=== PATIENT | male | born 1980 ===

== ENCOUNTER 2021-05-24 05:53 | Inpatient (IN) ==
[2021-05-19 10:26] LABS: Basophils # 0.1 10*3/uL (0.0-0.2); Basophils % 0.6 % (0.0-0.8); Eosinophils # 0.4 10*3/uL (0.0-0.87); Eosinophils % 2.9 % (0.00-10.9); Immature Granulocytes % 0.8 %; Immature Granulocytes Absolute 0.09 #; Lymphocytes # 2.5 10*3/uL (1.4-4.0); Lymphocytes % 20.8 % (21.2-54.2); Mean Corpuscular HGB Conc 33.3 GM/DL (32-36); Mean Corpuscular Volume 80.9 FL (87-102); Mean Platelet Volume 9.1 FL (9.6-12.0); Monocytes % 8.1 % (1.7-12.7); Neutrophils % 66.8 % (38.7-73.9); Platelet Count 602 T/CUMM (130-400); Red Blood Count 5.19 MC/CUMM (3.8-5.5); Red Cell Distribution Width 12.3 % (9.3-17.3); White Blood Count 11.9 T/CUMM (4-12)
[2021-05-19 10:42] LABS: Calcium 9.3 MG/DL (8.5-10.1); Osmolality,Calculated 276.5 MOS/KG (273-304); Potassium 4.5 MMOL/L (3.5-5.1)
[2021-05-24] MEDS ORDERED: fentaNYL 100 MCG/2 ML VIAL ONE ×2 (06:20→08:02)
[2021-05-24] MEDS ORDERED: LIDOCAINE 2% 5 ML VIAL ONE (06:20)
[2021-05-24] MEDS ORDERED: DEXAMETHASONE 4 MG/1 ML VIAL ONE (06:20)
[2021-05-24] MEDS ORDERED: MIDAZOLAM 2 MG/2 ML VIAL ONE (06:20)
[2021-05-24] MEDS ORDERED: propofoL 200 MG/20 ML VIAL IV ONE ×2 (06:20→08:12)
[2021-05-24] MEDS ORDERED: ONDANSETRON 4 MG/2 ML VIAL ONE (06:20)
[2021-05-24] MEDS ORDERED: ROCURONIUM 50 MG/5 ML VIAL IV ONE ×2 (06:20→08:13)
[2021-05-24] MEDS ORDERED: CLINDAMYCIN INJ 900 MG/50 ML PREMIX IV ONE (06:30)
[2021-05-24] MEDS ORDERED: ACETAMINOPHEN 500 MG TABLET PO ONE (06:31)
[2021-05-24] MEDS ORDERED: DIAZEPAM 5 MG TABLET PO ONE (06:31)
[2021-05-24] MEDS ORDERED: GABAPENTIN 400 MG CAPSULE PO ONE (06:31)
[2021-05-24] MEDS ORDERED: FAMOTIDINE 20 MG TABLET PO ONE (06:31)
[2021-05-24] MEDS: LACTATED RINGERS 1,000 ML IV SCH (06:40)
[2021-05-24] MEDS ORDERED: LIDOCAINE 1%/EPI INJ 20 ML VIAL ONE (07:20)
[2021-05-24] MEDS ORDERED: TISSUE ADHESIVE 1 EACH APPLICATOR TOP ONE (07:20)
[2021-05-24] MEDS ORDERED: BUPIVACAINE MPF 0.25% 30 ML VIAL ONE (07:20)
[2021-05-24] MEDS ORDERED: PHENYLEPHRINE 1 MG/10 ML SYRINGE IV ONE (08:11)
[2021-05-24] MEDS ORDERED: SEVOFLURANE 1 UNIT/15 MINUTE INH ONE ×14 (08:12→10:56)
[2021-05-24] MEDS ORDERED: SUGAMMADEX 200 MG/2 ML VIAL IV ONE (09:35)
[2021-05-24] MEDS ORDERED: ACETAMINOPHEN 325 MG TABLET PO PRN (11:11)
[2021-05-24] MEDS ORDERED: ONDANSETRON 4 MG/2 ML VIAL IV PRN (11:11)
[2021-05-24] MEDS ORDERED: HYDROmorphone 2 MG/1 ML VIAL IV PRN (11:11)
[2021-05-24] MEDS ORDERED: BENZTROPINE 0.5 MG TABLET PO PRN (13:25)
[2021-05-24] MEDS ORDERED: ARIPIPRAZOLE 400 MG IM SCH (13:30)
[2021-05-24] MEDS ORDERED: [UNRECOGNIZED DRUG - OTHER] IM SCH (13:30)
[2021-05-24] MEDS: LURASIDONE 120 MG PO SCH (16:45)
[2021-05-24] MEDS: METHOCARBAMOL INJ 1,000 MG in SODIUM CHLORIDE 0.9% 100 ML IV SCH ×2 (16:45→21:09)
[2021-05-24] MEDS: DEXTROSE 5% LACTATED RINGERS 1,000 ML IV SCH (18:58)
[2021-05-24] MEDS: traZODone 50 MG TABLET PO SCH (21:07)
[2021-05-24] MEDS: MIRTAZAPINE 15 MG TABLET PO SCH (21:07)
[2021-05-24] MEDS: QUEtiapine 100 MG TABLET PO SCH (21:07)
[2021-05-25] MEDS: DEXTROSE 5% LACTATED RINGERS 1,000 ML IV SCH ×3 (03:50→13:54)
[2021-05-25] MEDS: ENOXAPARIN 40 MG/0.4 ML SYRINGE SUBCUT SCH (04:44)
[2021-05-25] MEDS: METHOCARBAMOL INJ 1,000 MG in SODIUM CHLORIDE 0.9% 100 ML IV SCH ×3 (05:46→22:11)
[2021-05-25] MEDS: LACTATED RINGERS 1,000 ML IV SCH (06:22)
[2021-05-25 06:28] LABS: Basophils % 0.3 % (0.0-0.8); Eosinophils # 0.1 10*3/uL (0.0-0.87); Eosinophils % 0.8 % (0.00-10.9); Hematocrit 37.2 VOL% (42.0-52.0); Hemoglobin 12.1 GM/DL (14.0-18.0); Immature Granulocytes % 0.8 %; Immature Granulocytes Absolute 0.09 #; Lymphocytes # 2.3 10*3/uL (1.4-4.0); Lymphocytes % 20.4 % (21.2-54.2); Mean Corpuscular HGB Conc 32.5 GM/DL (32-36); Mean Corpuscular Volume 81.2 FL (87-102); Mean Platelet Volume 9.2 FL (9.6-12.0); Monocytes % 9.7 % (1.7-12.7); Platelet Count 535 T/CUMM (130-400); Red Blood Count 4.58 MC/CUMM (3.8-5.5); Red Cell Distribution Width 12.7 % (9.3-17.3); White Blood Count 11.2 T/CUMM (4-12)
[2021-05-25 06:48] LABS: Calcium 8.9 MG/DL (8.5-10.1); Osmolality,Calculated 283.1 MOS/KG (273-304)
[2021-05-25] MEDS: PANTOPRAZOLE 40 MG TABLET PO SCH (08:21)
[2021-05-25] MEDS: DULoxetine 30 MG CAPSULE PO SCH (08:21)
[2021-05-25] MEDS: LURASIDONE 120 MG PO SCH (08:21)
[2021-05-25] MEDS: traZODone 50 MG TABLET PO SCH (20:32)
[2021-05-25] MEDS: MIRTAZAPINE 15 MG TABLET PO SCH (20:32)
[2021-05-25] MEDS: QUEtiapine 100 MG TABLET PO SCH (20:32)
[2021-05-26] MEDS: DEXTROSE 5% LACTATED RINGERS 1,000 ML IV SCH ×4 (00:08→22:03)
[2021-05-26] MEDS: ENOXAPARIN 40 MG/0.4 ML SYRINGE SUBCUT SCH (05:06)
[2021-05-26] MEDS: METHOCARBAMOL INJ 1,000 MG in SODIUM CHLORIDE 0.9% 100 ML IV SCH ×2 (05:06→14:30)
[2021-05-26] MEDS: PANTOPRAZOLE 40 MG TABLET PO SCH (08:28)
[2021-05-26] MEDS: DULoxetine 30 MG CAPSULE PO SCH (08:28)
[2021-05-26] MEDS: LURASIDONE 120 MG PO SCH (08:30)
[2021-05-26] MEDS: MIRTAZAPINE 15 MG TABLET PO SCH (20:30)
[2021-05-26] MEDS: QUEtiapine 100 MG TABLET PO SCH (20:30)
[2021-05-26] MEDS: traZODone 50 MG TABLET PO SCH (20:31)
[2021-05-27] MEDS: METHOCARBAMOL INJ 1,000 MG in SODIUM CHLORIDE 0.9% 100 ML IV SCH ×2 (05:40→05:53)
[2021-05-27] MEDS: DEXTROSE 5% LACTATED RINGERS 1,000 ML IV SCH (05:41)
[2021-05-27] MEDS: ENOXAPARIN 40 MG/0.4 ML SYRINGE SUBCUT SCH (05:54)
[2021-05-27] MEDS: DULoxetine 30 MG CAPSULE PO SCH (09:05)
[2021-05-27] MEDS: PANTOPRAZOLE 40 MG TABLET PO SCH (09:05)
[2021-05-27] MEDS: LURASIDONE 120 MG PO SCH (09:06)
[2021-05-27 12:32] VITALS: BP 130/80
== END 2021-05-27 12:35 | disposition home or self-care (01) | DRG 354 ==
LOC: N.OR 05:53 → N.SDSINP 05:57 → N.3E 12:05
PROVIDERS: ADMIT Student in an Organized Health Care Education/Training Program; ATTEND Student in an Organized Health Care Education/Training Program